=== PATIENT | female | born 1980 | race Caucasian/White ===

== ENCOUNTER 2023-02-20 01:24 | Emergency (ER) | payer OTHER ==
[~2023-02-20] VITALS: Ht 165.1 cm; Wt 96.5 kg
[2023-02-20] MEDS ORDERED: IOHEXOL 350 MG/ML 100ML IJ ONE (01:52)
[2023-02-20 02:09] LABS: Basophils # (auto) 0 10 ^3/uL (0-0.2); Basophils % (auto) 0.4 % (0.0-2.0); Eosinophils # (auto) 0.4 10 ^3/uL (0-0.8); Eosinophils % (auto) 6.5 % (0.0-7.0); Hematocrit 34.9 % (36.0-46.0); Hemoglobin 11.5 g/dL (12.2-16.2); Lymphocytes # (auto) 1.8 10 ^3/uL (0.4-5.4); Lymphocytes % (auto) 25.9 % (10.0-50.0); Mean Corpuscular Hemoglobin 26.7 pg (28.0-32.0); Mean Corpuscular Hgb Conc. 32.8 g/dL (32.0-36.0); Mean Corpuscular Volume 81.3 fL (80.0-100.0); Monocytes # (auto) 0.7 10 ^3/uL (0-1.3); Neutrophils # (auto) 3.9 10 ^3/uL (1.6-8.6); Neutrophils % (auto) 57.2 % (37.0-80.0); Nucleated Red Blood Cells % 0.1 %; Red Cell Distribution Width 16.7 % (11.8-14.3); White Blood Cell 6.9 10^3/uL (4.4-10.8)
[2023-02-20 02:29] LABS: Albumin 3.3 g/dL (3.4-5.0); Calcium 8.1 mg/dL (8.5-10.1); Potassium 3.4 mmol/L (3.5-5.1)
[2023-02-20 02:45] LABS: Bilirubin, Total 0.2 mg/dL (0.2-1.0); Total Protein 6.9 g/dL (6.4-8.2)
[2023-02-20 04:32] VITALS: BP 143/87
== END 2023-02-20 04:39 | disposition home or self-care (01) ==
LOC: ER 01:24
DX: R07.89 Other chest pain (principal)
CPT/HCPCS: 36415; 71275; 80053; 84443; 84484; 85025; 93005; 99285; Q9967